=== PATIENT | male | born 1975 | race Caucasian/White ===

== ENCOUNTER 2020-12-02 10:51 | Emergency (ER) | payer BC, SELFPAY ==
--- NOTE | ~2020-12-02 | XR_ITS ---
EXAMINATION: XR knee LT 3V DATE: 12/02/2020 11:13 INDICATION: Left knee pain. TECHNIQUE: 3 views of left knee were obtained. COMPARISON: None. FINDINGS: Bone alignment is normal. No fracture. There is mild tricompartmental osteoarthritis charac terized by tiny marginal osteophytes. No knee joint effusion. IMPRESSION: 1. Mild left knee osteoarthritis. Reviewed, dictated and finalized at location A.
--- NOTE | 2020-12-02 10:53 | ED.LOWEXIN ---
HPI - Extremity Injury (Lower) General Chief Complaint: Extremity Problem,Nontraumatic Stated Complaint: lt knee pain Time Seen by Provider: 12/02/20 10:53 Source: patient and RN notes reviewed History of Present Illness HPI Narrative: Patient is a 45-year-old male who presents the urgent care with complaints of left knee pain. Patient states that the ongoing for approximately 1 month it is worsened in the last few days. Patient states he has a history of ligament injury in the right knee and this feels very similar . Patient states that he has not had the ligament injuries repaired to the right. States he has not followed up with that orthopedic for many years. States that he has tried using Voltaren cream, Advil and ibuprofen with limited pain relief. Patient denies of any known injury or recent trauma or fall to the left lower extremity. States that pain is exacerbated after long hours working and going up and down stairs. No other acute complaints. No acute distress noted. Patient aware of the plan of care. Some parts of this dictation were generated by voice recognition software and may contain typographical and/or grammatical inaccuracies. Related Data Home Medications Medication Instructions Recorded Confirmed lamotrigine 200 mg PO DAILY 12/02/20 12/02/20 lurasidone [Latuda] 40 mg PO DIRECTED 12/02/20 12/02/20 Allergies Allergy/AdvReac Type Severity Reaction Status Date / Time No Known Allergies Allergy Verified 12/02/20 11:08 Review of Systems Review of Systems: CONSTITUTIONAL: Denies fever, chills, or sweats. EYES: Denies visual changes, redness, or discharge. ENT: Denies rhinorrhea, congestion, sore throat, or otalgia. CARDIOVASCULAR: Denies chest pain, palpitations, or edema. RESPIRATORY: Denies cough or dyspnea. GASTROINTESTINAL: Denies abdominal pain, nausea, vomiting, or diarrhea. GENITOURINARY: Denies dysuria or hematuria. SKIN: Denies rash or itching. MUSCULOSKELETAL: Reports of left knee pain NEUROLOGIC: Denies headache, numbness, or weakness. All other systems reviewed are negative, except as documented in HPI. PMFSH Comments At the time of my signature, I reviewed and agree with the nursing past medical, surgical, social, and family history. There is no relevant family history pertinent to the patient complaint. Exam Narrative: GENERAL: This is a well-nourished, well-developed patient, in no apparent distress. HEAD: normocephalic, atraumatic. EYES: PERRL. Sclera clear/white. Vision is grossly intact. EARS: External ears normal NOSE: External nose normal with no obvious nasal discharge, nares without redness, no rhinorrhea. THROAT: Mucous membranes moist NECK: Neck supple CARDIOVASCULAR: Regular rate and rhythm without murmurs, gallops, or rubs. RESPIRATORY: Clear to auscultation. Breath sounds equal bilaterally. No wheezes, rales, or rhonchi. SKIN: warm, intact with no suspicious lesions or rash, good texture and turgor. NEURO: awake, alert, and oriented to person, place and time. There were no obvious focal neurologic abnormalities. EXTREMITIES: No edema, ecchymosis or erythema noted to the left knee/lower extremity. No obvious deformity noted to left lower extremity. Anterior drawer test negative to left knee. Positive strong left pedal pulse with capillary refill less than 2 seconds. Range of motion within normal limits. Course Vital Signs Vital signs: Vital Signs Temperature 97.8 F 12/02/20 11:00 Pulse Rate 92 12/02/20 11:00 Respiratory Rate 16 12/02/20 11:00 Blood Pressure 137/104 H 12/02/20 11:00 Pulse Oximetry 100 12/02/20 11:00 Temperature 97.8 F 12/02/20 11:00 Pulse Rate 92 12/02/20 11:00 Respiratory Rate 16 12/02/20 11:00 Blood Pressure 137/104 H 12/02/20 11:00 Pulse Oximetry 100 12/02/20 11:00 Reviewed-patient is informed that they may have pre-hypertension or hypertension based on a blood pressure reading in the department. I rec
[2020-12-02 11:00] VITALS: BP 137/104; PULSE 92; RESP 16; TEMP 36.6; O2SAT 100
== END 2020-12-02 11:38 | disposition home or self-care (01) ==
PROVIDERS: Emergency Provider Nurse Practitioner Family; PCP Physician Assistant
DX: M17.12 Unilateral primary osteoarthritis, left knee (principal); F31.9 Bipolar disorder, unspecified
CPT/HCPCS: 73562; 99203; G0463

== ENCOUNTER 2023-04-23 09:33 | Emergency (ER) | payer BC, SELFPAY ==
--- NOTE | ~2023-04-23 | XR_ITS ---
XR toe 5th RT min 2V DATE: 04/23/2023 09:53 INDICATION: Struck toe on cabinet on 04/12/2023 TECHNIQUE: 4 views COMPARISON: None FINDINGS: There is a linear oblique fracture through the shaft of the proximal phalanx of the distal phalanx with no significant displacement,, approximately 30 degrees apex anterior angulation. No other fracture or dislocation is detected. IMPRESSION: Fracture of proximal phalanx of fifth toe Reviewed, dictated and finalized at location B. [employer]
[2023-04-23 09:43] VITALS: BP 147/88; PULSE 73; RESP 16; TEMP 36.6; O2SAT 97
--- NOTE | 2023-04-23 09:52 | ED.GENADULT ---
HPI - General Adult General Chief complaint: Extremity Injury, Lower Stated complaint: Right Foot/Toe Injury Time Seen by Provider: 04/23/23 09:52 Source: patient, family, RN notes reviewed and old records reviewed Mode of arrival: ambulatory Limitations: no limitations History of Present Illness HPI narrative: 47 year old male accompanied by spouse presents to express care with complaints of injury to his right 5th toe which occurred on the 12 of April when he hit his toe on corner of cabinet.Patient reports that some of the swelling has decreased and the ecchymosis is gone but toe remains painful with some swelling. Patient reports that toe is increasingly painful with ambulation. Patient reports that he has been taking Ibuprofen for his discomfort and he has used some ice also to his toe at intervals. MD complaint: right 5th toe injury Onset (ago): day(s) (11) Location: right and lower extremity (5th toe) Severity scale (1-10): 3 Quality: aching Relieving factors: rest Exacerbating factors: other (ambulation) Treatments prior to arrival: NSAID and cold therapy Related Data Home Medications Medication Instructions Recorded Confirmed No Home Medications 04/23/23 04/23/23 Allergies Allergy/AdvReac Type Severity Reaction Status Date / Time No Known Allergies Allergy Verified 04/23/23 09:46 Review of Systems Review of Systems: CONSTITUTIONAL: Denies fever, chills, or sweats. EYES: Denies visual changes, redness, or discharge. ENT: Denies rhinorrhea, congestion, sore throat, or otalgia. CARDIOVASCULAR: Denies chest pain, palpitations, or edema. RESPIRATORY: Denies cough or dyspnea. GASTROINTESTINAL: Denies abdominal pain, nausea, vomiting, or diarrhea. GENITOURINARY: Denies dysuria or hematuria. SKIN: Denies rash or itching. MUSCULOSKELETAL: Denies back pain, positive for right 5th toe joint pain, or myalgia. NEUROLOGIC: Denies headache, numbness, or weakness. PSYCHIATRIC: Denies anxiety or depression. All systems reviewed & are unremarkable except as noted in HPI and below PMFSH Past Medical History Medical History (Updated 04/24/23 @ 20:23 by Tamara Grant NP) Bipolar disorder Social History Social History (Updated 04/24/23 @ 20:12 by Tamara Grant NP) Smoking status: Current every day smoker Tobacco type: e-cigarettes/vaping Additional smoking assessment comments: former cigarettes 1ppd for 20 years Alcohol intake: current Alcohol use details: social Substance use type: does not use Living arrangements: with family Gender identity (if verbalized by the patient): Male Comments At time of signature, agree with nursing past medical, surgical, social and family history. There is no relevant family history pertinent to the presenting complaint Exam Narrative: GENERAL: Well-appearing, well-nourished, and in no acute distress. HEAD: Normocephalic, atraumatic. EYES: PERRLA and EOMI. ENT: Nares clear, no rhinorrhea or epistaxis. Mucous membranes moist.TM's normal throat pink with no swelling NECK: Supple.no lymphadenopathy CHEST: Clear to auscultation. No respiratory distress.SAO2 97% on room air HEART: Regular rate and rhythm. No murmur heard. Normal peripheral pulses. ABDOMEN: Soft, nontender, nondistended, normal active bowel sounds. EXTREMITIES: Normal range of motion. No edema.Exception noted to swelling and discomfort to right 5th toe, strong pulses to right foot, patient reports no tingling or numbness to foot or toes, foot warm and pink. SKIN: Warm, dry, no rash. NEURO: No focal deficits. Alert and oriented x3. Course Course Emergency Course: Patient is aware of diagnosis, understands and agrees to treatment plan.? Anticipatory guidance given.? Patient agrees to follow-up as directed and is aware of reasons to seek care at the emergency department. Portions of this record may have been created with voice recognition software Level of Care: Express Care Visit Vi
== END 2023-04-23 10:35 | disposition home or self-care (01) ==
PROVIDERS: Emergency Provider Registered Nurse; PCP Physician Assistant
DX: S92.511A Displaced fracture of proximal phalanx of right lesser toe(s), initial encounter for closed fracture (principal); F17.290 Nicotine dependence, other tobacco product, uncomplicated; W22.09XA Striking against other stationary object, initial encounter
CPT/HCPCS: 73660; 99214; G0463